=== PATIENT | male | born 1950 | race Caucasian/White ===

== ENCOUNTER 2018-08-01 19:51 | Inpatient (IN) | payer BC, OTHER ==
--- NOTE | 2018-08-01 19:54 | PDOC ---
History of Present Illness - General History Source: Patient Exam Limitations: No Limitations - History of Present Illness Initial Comments: 08/01/18 20:07 A portion of this note was documented by scribe services under my direction. I have reviewed the details of the note, within reason, and agree with the documentation with the following case summary and management plan written by me. Patient treated in the ED. Nursing notes are reviewed and incorporated into the medical decision-making. Vital signs reviewed. Assessment plan: This is a 68-year-old male sent in by his primary care doctor for admission for CHF. Patient denies history of CHF in the past. Patient was having difficulty breathing went to his PMD and was noted to be new onset of CHF so sent to the emergency department for Lasix in the ED and that admission. <Dalton Mg I - Last Filed: 08/01/18 20:07> - General History Source: Patient Exam Limitations: No Limitations - History of Present Illness Initial Comments: 08/01/18 20:05 The patient is a 68 year old male presenting with his , who presents to the ED complaining of shortness of breath onset today. He reports that he was seen by his PCP earlier today, who advised him to have blood tests, chest X-Ray and EKG at [facility] earlier today. The patient was started on a Z-pack and sent home. After the patient went home, the PCP called him and advised him to come back to [facility] ED to get Lasix for his CHF with possible admission. The patient denies chest pain, headache and dizziness. Denies fever, chills, nausea, vomiting, diarrhea or constipation. PAST MEDICAL HISTORY: CHF PAST SURGICAL HISTORY: no significant history FAMILY HISTORY: no pertinent history SOCIAL HISTORY: Pt lives with family and is employed. MEDICATIONS: reviewed ALLERGIES: As per nursing notes GENERAL: The patient is awake, alert, and fully oriented, in no acute distress. HEAD: Normal with no signs of trauma. EYES: Pupils equal, round and reactive to light, extraocular movements intact, sclera anicteric, conjunctiva clear. LUNGS: (+) Mild tachypnia, bilateral rales half way up the lungs. CARDIAC: S1-S2 normal, regular rate and rhythm, no murmurs rubs or gallops EXTREMITIES: (+) Bilateral pedal edema 1-2+. Normal range of motion. NEUROLOGICAL: Normal speech, normal gait. PSYCH: Normal mood, normal affect. SKIN: Warm, Dry, normal turgor, no rashes or lesions noted. <Dwain Medina - Last Filed: 08/01/18 20:12> - General Chief Complaint: Congestive Heart Failure Stated Complaint: CHF Time Seen by Provider: 08/01/18 19:53 Past History <Dalton Mg I - Last Filed: 08/01/18 20:07> <Dwain Medina - Last Filed: 08/01/18 20:12> - Past Medical History Allergies/Adverse Reactions: Allergies Allergy/AdvReac Type Severity Reaction Status Date / Time dimenhydrinate Allergy Unverified 10/15/12 09:38 [From Dramamine] metformin Allergy Unverified 10/15/12 09:38 methocarbamol [From Robaxin] Allergy Unverified 10/15/12 09:38 pioglitazone HCl [From Actos] Allergy Unverified 10/15/12 09:38 *DC/Admit/Observation/Transfer - Discharge Dispostion Decision to Admit order: Yes <Dalton Mg I - Last Filed: 08/01/18 20:07> - Attestations Scribe Attestion: 08/01/18 20:05 Documentation prepared by Dwain Medina, acting as medical payment poster for Dalton Mg MD <Dwain Medina - Last Filed: 08/01/18 20:12> Diagnosis at time of Disposition: CHF (congestive heart failure)
[2018-08-01] MEDS ORDERED: FUROSEMIDE 40 MG/4 ML INJECTABLE VIAL IVPUSH ONE (20:35)
[2018-08-01] MEDS ORDERED: MIRTAZAPINE 30 MG TABLET (FP) PO SCH (21:00)
[2018-08-01] MEDS ORDERED: FUROSEMIDE 40 MG/4 ML INJECTABLE VIAL ONE (21:01)
[2018-08-01] MEDS ORDERED: PATIENT'S OWN MEDICATION (NON-FORMULARY) (Lisinopril/Hydrochlorothiazide [Lisinopril-Hctz PO SCH (22:00)
[2018-08-01] MEDS ORDERED: MIRTAZAPINE 15 MG TABLET (FP) PO SCH (22:00)
[2018-08-01] MEDS ORDERED: ATORVASTATIN CA 10 MG TABLET (FP) PO SCH (22:00)
[2018-08-01 22:26] VITALS: BMI 30.2
--- NOTE | 2018-08-01 23:32 | HP ---
CHIEF COMPLAINT:shortness of breath for two weeks, was treated for a cold and was taking Z pack PCP:Dr. Juarez HISTORY OF PRESENT ILLNESS: 68 year old male with history of hyperlipdemia, hypertension, diabetes mellitus , disectomy to c4,c5 and c6, left hip replacement in 2005 and full set of teeth extractions who presents with shortness of breath he has been experiencing for the past 2 1/2 weeks. He was treated with one day of Zpack however his symptoms continued. He reports being started on mobic recently for leg pain.He reports a 10 pound weight gain in 2 weeks. He denied eating foods high in sodium. He denied chest pain, orthopnea, paraoxysmal nocturnal dyspnea. Upon evaluation hin the ER he was found to have new onset acute congestive heart failure. Labs notable for BNP of 1680 and troponin of 0.60. In the ER he received one dosage of IV lasix 40 mg . He is being admitted to telemetry for IV diuresis and further cardiac management. PAST MEDICAL HISTORY:as above PAST SURGICAL HISTORY:as above Social History: Smoking:reports quit 4 weeks ago, smoked for 50 years Alcohol:Denies Drugs: Denies Family History:Father- CAD with stent Allergies dimenhydrinate [From Dramamine] Allergy (Verified 08/01/18 21:00) metformin Allergy (Verified 08/01/18 21:00) methocarbamol [From Robaxin] Allergy (Verified 08/01/18 21:00) pioglitazone HCl [From Actos] Allergy (Verified 08/01/18 21:00) HOME MEDICATIONS: REVIEW OF SYSTEMS CONSTITUTIONAL: Absent: fever, chills, diaphoresis, generalized weakness, malaise, loss of appetite, weight change HEENT: Absent: rhinorrhea, nasal congestion, throat pain, throat swelling, difficulty swallowing, mouth swelling, ear pain, eye pain, visual changes CARDIOVASCULAR: Absent: chest pain, syncope, palpitations, irregular heart rate, lightheadedness , peripheral edema RESPIRATORY: Absent: cough, shortness of breath, dyspnea with exertion, orthopnea, wheezing, stridor, hemoptysis GASTROINTESTINAL: Absent: abdominal pain/distension, nausea, vomiting, diarrhea, constipation, melena, hematochezia GENITOURINARY: Absent: dysuria, frequency, urgency, hesitancy, hematuria, flank pain, genital pain MUSCULOSKELETAL: Absent: myalgia, arthralgia, joint swelling, back pain, neck pain SKIN: Absent: rash, itching, pallor HEMATOLOGIC/IMMUNOLOGIC: Absent: easy bleeding, easy bruising, lymphadenopathy, frequent infections ENDOCRINE: Absent: unexplained weight gain, unexplained weight loss, heat intolerance, cold intolerance NEUROLOGIC: Absent: headache, focal weakness or paresthesias, dizziness, unsteady gait, seizure, mental status changes, bladder or bowel incontinence PSYCHIATRIC: Absent: anxiety, depression, suicidal or homicidal ideation, hallucinations. PHYSICAL EXAMINATION Vital Signs - 24 hr 08/01/18 08/01/18 19:52 22:47 Temperature 98.1 F 98.4 F Pulse Rate 104 H 54 L Respiratory 22 H 18 Rate Blood Pressure 151/97 128/63 O2 Sat by Pulse 92 L 93 L Oximetry (%) GENERAL: awake, alert, and fully oriented, in no acute distress HEAD: normal with no signs of trauma EYES: Pupils equal, round and reactive to light EARS, NOSE, THROAT: Ears normal, nares patent, oropharynx clear without exudates. Moist mucous membranes. NECK: Normal range of motion, supple no JVD LUNGS: +rales No accessory muscle use. HEART: Regular rate and rhythm, normal S1 and S2 no murmur ABDOMEN: Soft, nontender, not distended, normoactive bowel sounds MUSCULOSKELETAL: Normal range of motion at all joints. No bony deformities or tenderness UPPER EXTREMITIES: 2+ pulses, warm, well-perfused. No cyanosis. No clubbing. No peripheral edema. LOWER EXTREMITIES: 2+ pulses, warm, well-perfused. No calf tenderness. 1+ edema present bilaterally NEUROLOGICAL: Normal speech. Normal gait. PSYCHIATRIC: Cooperative. Good eye contact. Appropriate mood and affect. SKIN: Warm, dry, normal turgor, no rashes or lesions noted, normal capillary refill. Laboratory Results - last 24 hr 08/01/18 08/01/18 21:00 21:00 Creatine Kinase 114 Troponin I 0.60 H ASSESSMENT/PLAN: 68 year old male with history of hyperlipdemia, hypertension, diabetes mellitus , disectomy to c4,c5 and c6, left hip replacement in 2005 and full set of teeth extractions who presented with shortness of breath for the past 2 1/2 weeks and a 10 pound weight gain in 2 weeks. New onset acute congestive heart failure BNP 1680 and troponin of 0.60 .Patient has signs of fluid overload on exam. He received one dosage of IV lasix 40 mg . Continue with IV lasix 40 mg twice daily . Monitor strict I&O's,enal studies and electrolytes closely. Low sodium diet.Echocardiogram ordered to evaluate LV function and exclude wall motion and valvular abnormalities. Cardiology- Dr. Berry as per patient request consulted. Elevated Troponin Patient denies active anginal symptoms. Continue to trend troponin overnight. ?demand mediated ischemia but ACS cannot be fully excluded due to patient risk factors. Added baby aspirin, continue yun, statin therapy. Would consider adding beta tere, will defer management to Cardiology. EKG with no acute ischemia. Repeat EKG in am. Pending Cardiology evaluation. Will hold metformin if will need further cardiac invasive intervention. Hypertension Controlled . Continue with HCTZ, clonidine and lisinopril. Diabetes Mellitus Accucheks before meals. Will hold metformin as above. Check hemoglobin a1c. Insulin as per sliding scale. Hyperlipidemia Continue statin therapy. FEN Monitor electrolytes closely as patient being diuresed. DVT Lovenox 40 mg daily. Visit type - Emergency Visit Emergency Visit: Yes ED Registration Date: 08/01/18 Care time: The patient presented to the Emergency Department on the above date and was hospitalized for further evaluation of their emergent condition. - New Patient This patient is new to me today: Yes Date on this admission: 08/02/18 - Critical Care Critical Care patient: No
[2018-08-02] MEDS: cloNIDine HCL 0.1 MG TABLET PO SCH ×3 (00:09→22:17)
[2018-08-02] MEDS: HYDROCHLOROTHIAZIDE 25 MG TABLET (FP) PO SCH ×2 (00:10→09:21)
[2018-08-02] MEDS: LISINOPRIL 20 MG TABLET (FP) PO SCH ×3 (00:10→22:19)
[2018-08-02] MEDS ORDERED: ENOXAPARIN NA (PORCINE) 100 MG/1 ML DISP.SYRIN SQ SCH (06:15)
[2018-08-02] MEDS: FUROSEMIDE 40 MG/4 ML INJECTABLE VIAL IVPUSH SCH ×2 (06:19→13:07)
[2018-08-02] MEDS ORDERED: INSULIN SLIDING SCALE (NOVOLOG) 1 VIAL SQ SCH ×2 (07:00)
[2018-08-02] MEDS ORDERED: sitaGLIPtin PHOSPHATE 100 MG TABLET (FP) PO SCH (07:00)
[2018-08-02] MEDS ORDERED: metFORMIN HCL 500 MG TABLET (FP) PO SCH (07:00)
[2018-08-02 07:33] LABS: BASO % 0.7 % (0-2.0); EOS % 1.7 % (0-4.5); HEMATOCRIT 44.5 % (35.4-49); HEMOGLOBIN 14.7 GM/dl (11.7-16.9); LYMPH % 18.1 % (8-40); MCH 30.9 pg (25.7-33.7); MEAN CELL VOLUME 93.7 fl (80-96); MEAN PLT VOLUME 10.1 fl (7.5-11.1); MONO % 5.2 % (3.8-10.2); NEUT % 74.3 % (42.8-82.8); PLATELET COUNT 216 K/MM3 (134-434); RBC 4.75 M/mm3 (4.00-5.60); RDW 12.9 % (11.9-15.9); WHITE BLOOD COUNT 9.5 K/mm3 (4.0-10.8)
[2018-08-02 08:03] LABS: ANION GAP 10 MMOL/L (8-16); BLOOD UREA NITROGEN 21 mg/dl (7-18); CALCIUM 9.2 mg/dl (8.5-10); CHLORIDE 99 mmol/L (98-107); CO2 29 mmol/L (21-32); CREATININE 0.7 mg/dl (0.55-1.3); GLUCOSE,RANDOM 199 mg/dl (74-106); POTASSIUM 3.9 mmol/L (3.5-5.1); SODIUM 138 mmol/L (136-145)
[2018-08-02] MEDS ORDERED: ASPIRIN COATED 81 MG TABLET.EC PO STA (08:23)
[2018-08-02] MEDS ORDERED: ENOXAPARIN NA (PORCINE) 30 MG/0.3 ML DISP.SYRIN SQ SCH ×2 (10:00)
[2018-08-02] MEDS ORDERED: ASPIRIN 81 MG CHEWABLE TABLETS PO SCH (10:00)
--- NOTE | 2018-08-02 10:46 | PN ---
Physical Exam: SUBJECTIVE: Patient seen and examined at bedside. No chest pain overnight or at present. No palpitations, dizziness, diaphoresis. Had lower extremity swelling over past two days which is improved. Breathing is improved. Urinating frequently after lasix. OBJECTIVE: Vital Signs Period Temp Pulse Resp BP Sys/Richard Pulse Ox Last 24 Hr 97.5 F-98.5 F 54-104 18-22 119-151/61-97 87-97 GENERAL: The patient is awake, alert, and fully oriented, in no acute distress. LUNGS: Bibasilar crackles HEART: Regular rate and rhythm, S1, S2 ABDOMEN: Soft, nontender, nondistended EXTREMITIES: 2+ pulses, warm, well-perfused, trace bilateral lower ext edema NEUROLOGICAL: Cranial nerves II through XII grossly intact. Normal speech, steady gait observed Laboratory Results - last 24 hr 08/01/18 08/01/18 08/02/18 21:00 21:00 02:00 WBC RBC Hgb Hct MCV MCH MCHC RDW Plt Count MPV Absolute Neuts (auto) Neutrophils % Lymphocytes % Monocytes % Eosinophils % Basophils % Sodium Potassium Chloride Carbon Dioxide Anion Gap BUN Creatinine Creat Clearance w eGFR POC Glucometer Random Glucose Hemoglobin A1c % Calcium Creatine Kinase 114 Troponin I 0.60 H 1.62 H* 08/02/18 08/02/18 08/02/18 06:33 07:00 07:00 WBC 9.5 RBC 4.75 Hgb 14.7 Hct 44.5 MCV 93.7 MCH 30.9 MCHC 33.0 RDW 12.9 Plt Count 216 MPV 10.1 Absolute Neuts (auto) 7.0 Neutrophils % 74.3 Lymphocytes % 18.1 D Monocytes % 5.2 Eosinophils % 1.7 Basophils % 0.7 Sodium 138 Potassium 3.9 Chloride 99 Carbon Dioxide 29 Anion Gap 10 BUN 21 H Creatinine 0.7 Creat Clearance w eGFR > 60 POC Glucometer 188 Random Glucose 199 H Hemoglobin A1c % Calcium 9.2 Creatine Kinase Troponin I 08/02/18 08/02/18 07:00 07:00 WBC RBC Hgb Hct MCV MCH MCHC RDW Plt Count MPV Absolute Neuts (auto) Neutrophils % Lymphocytes % Monocytes % Eosinophils % Basophils % Sodium Potassium Chloride Carbon Dioxide Anion Gap BUN Creatinine Creat Clearance w eGFR POC Glucometer Random Glucose Hemoglobin A1c % 8.5 H Calcium Creatine Kinase Troponin I 0.59 H Active Medications Generic Name Dose Route Start Last Admin Trade Name Terry PRN Reason Stop Dose Admin Aspirin 81 mg 08/02/18 10:00 08/02/18 09:20 Asa - PO Not Given DAILY TOMMY Atorvastatin Calcium 10 mg 08/01/18 22:00 08/02/18 00:10 Lipitor - PO 10 mg HS TOMMY Administration Bupropion HCl 300 mg 08/02/18 10:00 08/02/18 09:21 Wellbutrin Xl - PO 300 mg DAILY TOMMY Administration Clonidine 0.3 mg 08/01/18 22:00 08/02/18 09:21 Catapres - PO 0.3 mg BID TOMMY Administration Enoxaparin Sodium 100 mg 08/02/18 06:15 08/02/18 06:16 Lovenox - SQ 100 mg BID@0600,1800 TOMMY Administration Furosemide 40 mg 08/02/18 06:00 08/02/18 06:19 Lasix Injection - IVPUSH 40 mg BID@0600,1400 TOMMY Administration Hydrochlorothiazide 25 mg 08/01/18 22:15 08/02/18 09:21 Hctz - PO 25 mg BID TOMMY Administration Insulin Aspart 1 vial 08/02/18 07:00 08/02/18 06:36 Novolog Vial Sliding Scale - SQ Not Given BIDAC [facility] Protocol Lisinopril 20 mg 08/01/18 22:15 08/02/18 09:21 Prinivil PO 20 mg BID TOMMY Administration Mirtazapine 45 mg 08/01/18 22:00 08/02/18 00:10 Remeron - PO Not Given HS [facility] PCP: Dr. Pelaez ASSESSMENT/PLAN 68 year-old male with a PMH significant for HTN, HLD, Type II NIDDM, and chronic pain s/p cervical spine discectomies and left hip replacement. Placed on observation for suspected heart failure. Newly diagnosed heart failure, NOS --in setting of viral upper respiratory symptoms since May --08/01 CXR: cardiomegaly, moderate congestive heart failure, possible small effusions, fluid in the fissures --continue IV Lasix BID --cardiology following Elevated troponins --0.6-->1.62-->0.59 --ECG: not suggestive of acute ischemic event --takes daily ASA, will continue --was started on full dose lovenox last night after second troponin came back elevated; will defer to cardiology whether to continue --Echo done pending dictation Possible pneumonia --possible infiltrates on CXR --labs drawn in PCP's office on 08/01: WBC 13.7k --was started on azithromycin by Dr. Pelaez, will continue (today day #2 - has own supply); start ceftriaxone (day #1) Chronic pain --s/p multiple orthopedic surgeries --in past was on very high doses of oxycontin, weaned off over 2 years; takes multiple NSAIDS; started CBD several weeks ago Hypertension --BP stable --continue lisinopril Hyperlipidemia --continue Lipitor Type II NIDDM --Novolog sliding scale coverage FEN Fluids: PO intake adequate Electrolytes: replete as indicated Nutrition: diabetic/low sodium DVT prophylaxis: on full dose lovenox Dispo: continues to require inpatient care. Full code. Visit type - Emergency Visit Emergency Visit: Yes ED Registration Date: 08/01/18 Care time: The patient presented to the Emergency Department on the above date and was hospitalized for further evaluation of their emergent condition. - New Patient This patient is new to me today: Yes Date on this admission: 08/02/18 - Critical Care Critical Care patient: No
[2018-08-02] MEDS ORDERED: CEFTRIAXONE 2 GM-D5W BAG 2 GM/50 ML BAG IVPB SCH (11:00)
[2018-08-02] MEDS ORDERED: CEFTRIAXONE 2 GM in DEXTROSE 5%-WATER 100 ML IVPB SCH (11:15)
[2018-08-02] MEDS ORDERED: CEFTRIAXONE 2 GM in SODIUM CHLORIDE 100 ML IVPB SCH (11:15)
[2018-08-02] MEDS ORDERED: SODIUM CHLORIDE 100 ML IVPB ONE (11:40)
[2018-08-02] MEDS: CEFTRIAXONE 2 GM in SODIUM CHLORIDE 100 ML IVPB SCH (11:43)
--- NOTE | 2018-08-02 13:25 | ECHO ---
Name: NADER SCANLON Exam:Adult Echocardiogram Study Date: 08/02/2018 08:22 AM Age: 68 yrs Reason For Study: CHF NEW ONSET Height: 72 in Weight: 218 lb BSA: 2.2 m2 MMode/2D Measurements & Calculations IVSd: 1.00 cm Ao root diam: 2.7 cm LVIDd: 5.7 cm LA dimension: 4.0 cm LVIDs: 4.4 cm LVPWd: 0.97 cm EDV(Teich): 161.1 ml ESV(Teich): 87.0 ml Doppler Measurements & Calculations MV E max kasandra: 89.4 cm/sec MV A max kasandra: 60.0 cm/sec MV dec slope: 753.8 cm/sec2 MV E/A: 1.5 Ao V2 max: 156.0 cm/sec LV V1 max P.7 mmHg Ao max P.7 mmHg LV V1 max: 96.6 cm/sec MR max kasandra: 294.4 cm/sec MR max P.7 mmHg Procedure A complete two-dimensional transthoracic echocardiogram was performed (2D, M-mode, Doppler and color flow Doppler). Left Ventricle The left ventricle is normal in size. Left ventricular systolic function is moderately reduced. Eject ion Fraction = 40-45%. There is moderate global hypokinesis of the left ventricle. Right Ventricle The right ventricle is normal in size and function. Atria Normal left and right atrial size and function. Mitral Valve There is mild to moderate mitral regurgitation. Tricuspid Valve No tricuspid regurgitation. There was insufficient TR detected to calculate RV systolic pressure. Aortic Valve No hemodynamically significant valvular aortic stenosis. No aortic regurgitation is present. Pulmonic Valve There is no pulmonic valvular regurgitation. Great Vessels The aortic root is normal size. Pericardium/Pleura Small pericardial effusion (<1cm). There are no echocardiographic indications of cardiac tamponade. Interpretation Summary The left ventricle is normal in size. Left ventricular systolic function is moderately reduced. There is moderate global hypokinesis of the left ventricle. The right ventricle is normal in size and function. There is mild to moderate mitral regurgitation. Small pericardial effusion (<1cm) MD Gm Moore 08/02/2018 01:25 PM
--- NOTE | 2018-08-02 14:09 | CON.CARD ---
Consult Consult Specialty:: Cardiology Referred by:: Medicine Reason for Consultation:: CHF - History of Present Illness Chief Complaint: shortness of breath History of Present Illness: 68M h/o HLD, HTN, DM p/w dyspnea for 2-3 weeks. Treated with zpack as outpatient did not improve. No chest pain, palps, dizziness. Had 10 lb weight gain in 2 weeks. BNP 1680, trop 0.6, received lasix 40 mg IV x 1. Overnight trop increased to 1.6, given full dose lovenox x 1, trop this AM 0.6. Feels short of breath but improved. edema over the last few weeks, improved. - History Source Limitations to Obtaining History: No Limitations - Alcohol/Substance Use Hx Alcohol Use: No - Smoking History Smoking history: Former smoker Have you smoked in the past 12 months: Yes Home Medications - Allergies Allergies/Adverse Reactions: Allergies Allergy/AdvReac Type Severity Reaction Status Date / Time dimenhydrinate Allergy Verified 08/01/18 21:00 [From Dramamine] metformin Allergy Verified 08/01/18 21:00 methocarbamol [From Robaxin] Allergy Verified 08/01/18 21:00 pioglitazone HCl [From Actos] Allergy Verified 08/01/18 21:00 Family Disease History - Family Disease History Family History: Unremarkable Review of Systems - Review of Systems Constitutional: reports: No Symptoms Eyes: reports: No Symptoms HENT: reports: No Symptoms Neck: reports: No Symptoms Cardiovascular: reports: No Symptoms, Chest Pain Respiratory: reports: SOB Gastrointestinal: reports: No Symptoms Genitourinary: reports: No Symptoms Musculoskeletal: reports: No Symptoms Integumentary: reports: No Symptoms Neurological: reports: No Symptoms Hematology/Lymphatic: reports: No Symptoms Psychiatric: reports: No Symptoms Vital Signs: Vital Signs Temperature 98 F 08/02/18 08:45 Pulse Rate 80 08/02/18 08:45 Respiratory Rate 18 08/02/18 08:46 Blood Pressure 125/77 08/02/18 08:45 O2 Sat by Pulse Oximetry (%) 96 08/02/18 08:46 Constitutional: Yes: Well Nourished, No Distress, Calm Eyes: Yes: Conjunctiva Clear, EOM Intact HENT: Yes: Atraumatic, Normocephalic Neck: Yes: Supple, Trachea Midline Respiratory: Yes: Regular, Rales (bases bilaterally) Gastrointestinal: Yes: Normal Bowel Sounds, Soft Cardiovascular: Yes: Regular Rate and Rhythm JVD: Yes Carotid Bruit: No PMI: Non-Displaced Heart Sounds: Yes: S1, S2 Murmur: No: Systolic Murmur Musculoskeletal: No: Joint Swelling Extremities: No: Cold Edema: Yes Edema: LLE: 1+, RLE: 1+ Peripheral Pulses WNL: Yes Peripheral Pulses: 2+ Left Doralis Pedis, 2+ Right Dorsalis Pedis Neurological: Yes: Alert, Oriented Psychiatric: Yes: Agitated - Other Data Labs, Other Data: CBC, BMP 08/02/18 07:00 08/02/18 07:00 Troponin, BNP 08/01/18 08/02/18 08/02/18 21:00 02:00 07:00 Troponin I 0.60 H 1.62 H* 0.59 H Troponin, BNP 08/01/18 08/02/18 08/02/18 21:00 02:00 07:00 Troponin I 0.60 H 1.62 H* 0.59 H Assessment/Plan echo 01/2018 nl LV/RV function, trivial pericardial effusion echo 07/2018 LV function mod reduced EF 40-45%, mod global hypok of LV, RV nl, mild to mod MR, small pericardial effusion CXR: congestive changes EKG: sinus, RBBB, PACs tele: sinus, PACs 68M h/o HLD, HTN, DM p/w dyspnea, CHF exac, NSTEMI Acute systolic CHF exac - echo shows EF 40-45% (prior nl EF in 11/2017), BNP 1680 - dyspnea, edema improving with IV lasix, continue lasix 40 mg IV BID - ischemic workup after euvolemic NSTEMI - trop 0.6->1.6->0.6, asymptomatic, no EKG change - new cardiomyopathy as above - continue lovenox, increase atorvastatin to 80 mg daily - cardiac cath when euvolemic HTN - on clonidine and lisinopril at home, has had low BPs today - start bb as BP tolerates HLD - cont statin DM - manage per primary
--- NOTE | 2018-08-02 15:44 | EKG ---
Test Reason : Blood Pressure : / mmHG Vent. Rate : 101 BPM Atrial Rate : 101 BPM P-R Int : 156 ms QRS Dur : 148 ms QT Int : 400 ms P-R-T Axes : 053 180 017 degrees QTc Int : 518 ms SINUS TACHYCARDIA WITH PREMATURE ATRIAL COMPLEXES POSSIBLE LEFT ATRIAL ENLARGEMENT RIGHT BUNDLE BRANCH BLOCK ABNORMAL ECG WHEN COMPARED WITH ECG OF 02-AUG-2018 01:59, CRITERIA FOR ANTERIOR INFARCT ARE NO LONGER PRESENT Confirmed by CASSANDRA VALADEZ, MITALI ([id number]) on 08/02/2018 3:43:32 PM Referred By: KEV REILLY Confirmed By:MITALI TRUJILLO MD
--- NOTE | 2018-08-02 15:45 | EKG ---
Test Reason : Blood Pressure : / mmHG Vent. Rate : 104 BPM Atrial Rate : 104 BPM P-R Int : 162 ms QRS Dur : 148 ms QT Int : 378 ms P-R-T Axes : 061 155 011 degrees QTc Int : 497 ms SINUS TACHYCARDIA WITH PREMATURE ATRIAL COMPLEXES RIGHT BUNDLE BRANCH BLOCK ANTERIOR INFARCT , AGE UNDETERMINED ABNORMAL ECG WHEN COMPARED WITH ECG OF 01-AUG-2018 21:47, PREMATURE VENTRICULAR COMPLEXES ARE NO LONGER PRESENT PREMATURE ATRIAL COMPLEXES ARE NOW PRESENT ANTERIOR INFARCT IS NOW PRESENT Confirmed by MITALI TRUJILLO MD ([id number]) on 08/02/2018 3:45:07 PM Referred By: Confirmed By:MITALI TRUJILLO MD
--- NOTE | 2018-08-02 15:46 | EKG ---
Test Reason : Blood Pressure : / mmHG Vent. Rate : 110 BPM Atrial Rate : 110 BPM P-R Int : 146 ms QRS Dur : 144 ms QT Int : 374 ms P-R-T Axes : 049 153 013 degrees QTc Int : 506 ms SINUS TACHYCARDIA WITH OCCASIONAL PREMATURE VENTRICULAR COMPLEXES POSSIBLE LEFT ATRIAL ENLARGEMENT RIGHT BUNDLE BRANCH BLOCK ABNORMAL ECG WHEN COMPARED WITH ECG OF 01-AUG-2018 14:38, NO SIGNIFICANT CHANGE WAS FOUND Confirmed by MITALI TRUJILLO MD ([id number]) on 08/02/2018 3:45:52 PM Referred By: MD OLEA Confirmed By:MITALI TRUJILLO MD
[2018-08-02] MEDS: INSULIN SLIDING SCALE (NOVOLOG) 1 VIAL SQ SCH (17:42)
[2018-08-02] MEDS: ENOXAPARIN NA (PORCINE) 100 MG/1 ML DISP.SYRIN SQ SCH (17:42)
[2018-08-02] MEDS ORDERED: MIRTAZAPINE 15 MG TABLET (FP) PO SCH (22:00)
[2018-08-02] MEDS: AMITRIPTYLINE HCL 10 MG TABLET (FP) PO SCH (22:18)
[2018-08-02] MEDS: ATORVASTATIN CA 80 MG TABLET (FP) PO SCH (22:19)
[2018-08-02] MEDS: POLYETHYLENE GLYCOL 3350 119 GM BTL PO SCH (22:19)
[2018-08-02] MEDS: MIRTAZAPINE 30 MG TABLET (FP) PO SCH (22:20)
[2018-08-03] MEDS: ENOXAPARIN NA (PORCINE) 100 MG/1 ML DISP.SYRIN SQ SCH ×2 (06:39→17:15)
[2018-08-03] MEDS: FUROSEMIDE 40 MG/4 ML INJECTABLE VIAL IVPUSH SCH ×2 (06:39→13:22)
[2018-08-03] MEDS: INSULIN SLIDING SCALE (NOVOLOG) 1 VIAL SQ SCH ×2 (06:39→17:16)
[2018-08-03] MEDS ORDERED: SODIUM CHLORIDE 100 ML IVPB ONE (09:07)
--- NOTE | 2018-08-03 09:43 | PN ---
Progress Note (short form) - Note Progress Note: Hospitalist to document today. Some cough but no chest pain. 1920cc urine output. Lost 5 lbs. Chest; rales at bases ; pedal edema is gone. Repeat CXR, EKG ordered. lab reordered by hospitalist. If patient will be studied at the [facility] [place] we should D/C Metformin
[2018-08-03] MEDS: CEFTRIAXONE 2 GM in SODIUM CHLORIDE 100 ML IVPB SCH (09:55)
[2018-08-03] MEDS: cloNIDine HCL 0.1 MG TABLET PO SCH ×2 (09:56→21:44)
[2018-08-03] MEDS: ASPIRIN 81 MG CHEWABLE TABLETS PO SCH (09:56)
[2018-08-03] MEDS: LISINOPRIL 20 MG TABLET (FP) PO SCH ×2 (09:56→21:44)
[2018-08-03] MEDS ORDERED: PT OWN MED DRAWER 7, Y5N ONE ×2 (09:58→21:42)
[2018-08-03] MEDS ORDERED: ASPIRIN 81 MG CHEWABLE TABLETS PO SCH (10:00)
[2018-08-03 10:34] LABS: HEMOGLOBIN 16.2 GM/dL (11.7-16.9); MCH 32.1 pg (25.7-33.7); MCHC 34.5 g/dl (32.0-35.9); MEAN CELL VOLUME 93.1 fl (80-96); PLATELET COUNT 231 K/MM3 (134-434); RBC 5.05 M/mm3 (4.00-5.60); RDW 13.5 % (11.9-15.9); WHITE BLOOD COUNT 10.4 K/mm3 (4.0-10.0)
--- NOTE | 2018-08-03 11:05 | PN ---
Progress Note (short form) - Note Progress Note: s: no cp sob palps dizzy o: Vital Signs Period Temp Pulse Resp BP Sys/Richard Pulse Ox Last 24 Hr 97.2 F-98.2 F 61-109 18-20 89-154/51-70 90-93 Constitutional: Yes: Well Nourished, No Distress, Calm Eyes: Yes: Conjunctiva Clear Respiratory: Yes: Regular, Rales (bases bilaterally) Gastrointestinal: Yes: Normal Bowel Sounds, Soft Cardiovascular: Yes: Regular Rate and Rhythm JVD: Yes Heart Sounds: Yes: S1, S2 Murmur: No: Systolic Murmur Extremities: No: Cold Edema: Yes Edema:trace bl Peripheral Pulses: 2+ Left Doralis Pedis, 2+ Right Dorsalis Pedis Neurological: Yes: Alert, Oriented Psychiatric: Yes: Agitated Current Medications Generic Name Dose Route Start Last Admin Trade Name Freq PRN Reason Stop Dose Admin Amitriptyline HCl 20 mg 08/02/18 22:00 08/02/18 22:18 Elavil - PO 20 mg HS TOMMY Administration Aspirin 81 mg 08/03/18 10:00 08/03/18 09:56 Asa - PO 81 mg DAILY TOMMY Administration Atorvastatin Calcium 80 mg 08/02/18 22:00 08/02/18 22:19 Lipitor - PO 80 mg HS TOMMY Administration Bupropion HCl 300 mg 08/03/18 10:00 08/03/18 10:01 Wellbutrin Xl - PO 300 mg DAILY TOMMY Administration Clonidine 0.2 mg 08/02/18 14:50 08/03/18 09:56 Catapres - PO 0.2 mg BID TOMMY Administration Enoxaparin Sodium 100 mg 08/02/18 18:00 08/03/18 06:39 Lovenox - SQ 100 mg BID@0600,1800 TOMMY Administration Furosemide 40 mg 08/03/18 06:00 08/03/18 06:39 Lasix Injection - IVPUSH 40 mg BID@0600,1400 TOMMY Administration Gabapentin 200 mg 08/03/18 14:00 Neurontin - PO TID TOMMY Ceftriaxone Sodium 2 gm/ 100 mls @ 200 mls/hr 08/02/18 11:45 08/03/18 09:55 Sodium Chloride IVPB 200 mls/hr DAILY TOMMY Administration Insulin Aspart 1 vial 08/02/18 16:30 08/03/18 06:39 Novolog Vial Sliding Scale - SQ 2 units BIDAC TOMMY Administration Protocol Lisinopril 20 mg 08/02/18 22:00 08/03/18 09:56 Prinivil PO 20 mg BID TOMMY Administration Mirtazapine 60 mg 08/02/18 22:00 08/02/18 22:20 Remeron - PO 60 mg HS TOMMY Administration Polyethylene Glycol 17 gm 08/02/18 22:00 08/02/18 22:19 Miralax (For Daily Use) - PO 17 gm HS TOMMY Administration CBC, BMP 08/03/18 10:00 Assessment/Plan echo 01/2018 nl LV/RV function, trivial pericardial effusion echo 07/2018 LV function mod reduced EF 40-45%, mod global hypok of LV, RV nl, mild to mod MR, small pericardial effusion CXR: congestive changes EKG: sinus, RBBB, PACs tele: sinus, PACs 68M h/o HLD, HTN, DM p/w dyspnea, CHF exac, NSTEMI Acute systolic CHF exac - echo shows EF 40-45% (prior nl EF in 11/2017), BNP 1680 - dyspnea, edema improving with IV lasix, continue lasix 40 mg IV BID. check daily chem7, wt. - ischemic workup after euvolemic NSTEMI - trop 0.6->1.6->0.6, asymptomatic, no EKG change - new cardiomyopathy as above - continue lovenox, increased atorvastatin to 80 mg daily - cardiac cath when euvolemic HTN - on clonidine and lisinopril at home, has had low BPs today - start bb as BP tolerates HLD - cont statin DM - manage per primary
[2018-08-03 11:12] LABS: ANION GAP 5 MMOL/L (8-16); BLOOD UREA NITROGEN 29 mg/dL (7-18); CALCIUM 9.4 mg/dL (8.5-10.1); CHLORIDE 100 mmol/L (98-107); CO2 34 mmol/L (21-32); GLUCOSE,RANDOM 238 mg/dL (74-106); MAGNESIUM 2.4 mg/dL (1.8-2.4); POTASSIUM 3.8 mmol/L (3.5-5.1); SODIUM 139 mmol/L (136-145)
--- NOTE | 2018-08-03 11:37 | PN ---
Progress Note (short form) - Note Progress Note: states breathing is much improved today. states leg swelling resolved. states he has been progressively worsening over several weeks after a cold. denies Cp, SOB, fever, chills, N/V/C/D, cough, Current Medications Generic Name Dose Route Start Last Admin Trade Name Freq PRN Reason Stop Dose Admin Amitriptyline HCl 20 mg 08/02/18 22:00 08/02/18 22:18 Elavil - PO 20 mg HS TOMMY Administration Aspirin 81 mg 08/03/18 10:00 08/03/18 09:56 Asa - PO 81 mg DAILY TOMMY Administration Atorvastatin Calcium 80 mg 08/02/18 22:00 08/02/18 22:19 Lipitor - PO 80 mg HS TOMMY Administration Bupropion HCl 300 mg 08/03/18 10:00 08/03/18 10:01 Wellbutrin Xl - PO 300 mg DAILY TOMMY Administration Clonidine 0.2 mg 08/02/18 14:50 08/03/18 09:56 Catapres - PO 0.2 mg BID TOMMY Administration Enoxaparin Sodium 100 mg 08/02/18 18:00 08/03/18 06:39 Lovenox - SQ 100 mg BID@0600,1800 TOMMY Administration Furosemide 40 mg 08/03/18 06:00 08/03/18 06:39 Lasix Injection - IVPUSH 40 mg BID@0600,1400 TOMMY Administration Gabapentin 200 mg 08/03/18 14:00 Neurontin - PO TID TOMMY Ceftriaxone Sodium 2 gm/ 100 mls @ 200 mls/hr 08/02/18 11:45 08/03/18 09:55 Sodium Chloride IVPB 200 mls/hr DAILY TOMMY Administration Insulin Aspart 1 vial 08/02/18 16:30 08/03/18 06:39 Novolog Vial Sliding Scale - SQ 2 units BIDAC TOMMY Administration Protocol Lisinopril 20 mg 08/02/18 22:00 08/03/18 09:56 Prinivil PO 20 mg BID TOMMY Administration Mirtazapine 60 mg 08/02/18 22:00 08/02/18 22:20 Remeron - PO 60 mg HS TOMMY Administration Polyethylene Glycol 17 gm 08/02/18 22:00 08/02/18 22:19 Miralax (For Daily Use) - PO 17 gm HS TOMMY Administration Last Vital Signs Temp Pulse Resp BP Pulse Ox 97.8 F 94 H 20 126/64 93 L 08/03/18 05:47 08/03/18 05:47 08/03/18 05:47 08/03/18 05:47 08/02/18 22:00 Intake & Output 07/31/18 08/01/18 08/02/18 08/03/18 23:59 23:59 23:59 23:59 Intake Total 120 Output Total 1000 1920 Balance -880 -1920 Weight 222 lb 12.8 oz 217 lb 0.9 oz 217 lb 3.2 oz general NAD CV S1 S2 RRR no murmur/rub/gallop + JVD Lungs crackles L base, no wheezing Abdomen soft NT?/ND obese Extremities no pedal edema CBCD WBC 10.4 K/mm3 (4.0-10.0) H 08/03/18 10:00 RBC 5.05 M/mm3 (4.00-5.60) 08/03/18 10:00 Hgb 16.2 GM/dL (11.7-16.9) 08/03/18 10:00 Hct 47.0 % (35.4-49) 08/03/18 10:00 MCV 93.1 fl (80-96) 08/03/18 10:00 MCHC 34.5 g/dl (32.0-35.9) 08/03/18 10:00 RDW 13.5 % (11.9-15.9) 08/03/18 10:00 Plt Count 231 K/MM3 (134-434) 08/03/18 10:00 MPV 10.0 fl (7.5-11.1) 08/03/18 10:00 CMP Sodium 139 mmol/L (136-145) 08/03/18 10:00 Potassium 3.8 mmol/L (3.5-5.1) 08/03/18 10:00 Chloride 100 mmol/L (98-107) 08/03/18 10:00 Carbon Dioxide 34 mmol/L (21-32) H 08/03/18 10:00 Anion Gap 5 MMOL/L (8-16) L 08/03/18 10:00 BUN 29 mg/dL (7-18) H 08/03/18 10:00 Creatinine 1.0 mg/dL (0.55-1.3) 08/03/18 10:00 Creat Clearance w eGFR > 60 (>60) 08/03/18 10:00 Calcium 9.4 mg/dL (8.5-10.1) 08/03/18 10:00 Assessment and Plan: 68 year-old male with a PMH significant for HTN, HLD, Type II NIDDM, and chronic pain s/p cervical spine discectomies and left hip replacement. presented with progressively worsening SOB and had + troponins sent here from [facility] for continuous cardiac monitoring. 1. Newly diagnosed systolic heart failure- EF 40-45%. CXR ordered this AM. weight stable. will cont lasix 40mg IV BID. monitor electrolytes. will need cardiac cath. cardiology on board. daily weights 2. NSTEMI- Trop peaked 1.62. on full dose lovenox. plan for cardiac cath when euvolemic 3. PNA- completed Zpack. on Ceftriaxone day 2. f/u CXR 4. Chronic pain- due to multiple back surgeries. currently on CBD 5. HTN- controlled. cont to monitor 6. Dyslipidemia- statin 7. DM- hold oral agents. iss and bgm 8. DVT ppx- full dose lovenox Visit type - Emergency Visit Emergency Visit: Yes ED Registration Date: 08/01/18 Care time: The patient presented to the Emergency Department on the above date and was hospitalized for further evaluation of their emergent condition. - New Patient This patient is new to me today: Yes Date on this admission: 08/03/18 - Critical Care Critical Care patient: No - Discharge Referral Referred to [facility] Med P.C.: No
--- NOTE | 2018-08-03 13:03 | EKG ---
Test Reason : Blood Pressure : / mmHG Vent. Rate : 104 BPM Atrial Rate : 104 BPM P-R Int : 160 ms QRS Dur : 148 ms QT Int : 394 ms P-R-T Axes : -25 178 021 degrees QTc Int : 518 ms SINUS TACHYCARDIA WITH OCCASIONAL PREMATURE VENTRICULAR COMPLEXES RIGHT BUNDLE BRANCH BLOCK ABNORMAL ECG WHEN COMPARED WITH ECG OF 02-AUG-2018 07:38, PREMATURE VENTRICULAR COMPLEXES ARE NOW PRESENT PREMATURE ATRIAL COMPLEXES ARE NO LONGER PRESENT Confirmed by NATHAN VALADEZ, BRENDON ([id number]) on 08/03/2018 1:02:52 PM Referred By: GALILEO CISNEROS Confirmed By:BRENDON EVANS MD
[2018-08-03] MEDS: GABAPENTIN 100 MG CAPSULE (FP) PO SCH ×2 (13:22→21:43)
[2018-08-03] MEDS ORDERED: MIRTAZAPINE 15 MG TABLET (FP) ONE (21:41)
[2018-08-03] MEDS: ATORVASTATIN CA 80 MG TABLET (FP) PO SCH (21:44)
[2018-08-03] MEDS: MIRTAZAPINE 30 MG TABLET (FP) PO SCH (21:44)
[2018-08-03] MEDS: AMITRIPTYLINE HCL 10 MG TABLET (FP) PO SCH (21:44)
[2018-08-03] MEDS: POLYETHYLENE GLYCOL 3350 119 GM BTL PO SCH (21:45)
[2018-08-04] MEDS: ENOXAPARIN NA (PORCINE) 100 MG/1 ML DISP.SYRIN SQ SCH ×2 (06:26→17:18)
[2018-08-04] MEDS: GABAPENTIN 100 MG CAPSULE (FP) PO SCH ×2 (06:26→13:15)
[2018-08-04] MEDS: FUROSEMIDE 40 MG/4 ML INJECTABLE VIAL IVPUSH SCH (06:26)
[2018-08-04] MEDS: INSULIN SLIDING SCALE (NOVOLOG) 1 VIAL SQ SCH ×2 (06:31→17:19)
[2018-08-04 07:21] LABS: BASO % 0.8 % (0-2.0); EOS % 2.9 % (0-4.5); HEMATOCRIT 44.4 % (35.4-49); HEMOGLOBIN 15.3 GM/dL (11.7-16.9); LYMPH % 28.2 % (8-40); MCH 32.1 pg (25.7-33.7); MCHC 34.5 g/dl (32.0-35.9); MEAN PLT VOLUME 9.9 fl (7.5-11.1); MONO % 8.4 % (3.8-10.2); NEUT % 59.7 % (42.8-82.8); PLATELET COUNT 215 K/MM3 (134-434); RBC 4.77 M/mm3 (4.00-5.60); RDW 13.8 % (11.9-15.9); WHITE BLOOD COUNT 7.7 K/mm3 (4.0-10.0)
[2018-08-04 07:58] LABS: ANION GAP 7 MMOL/L (8-16); BLOOD UREA NITROGEN 28 mg/dL (7-18); CALCIUM 8.9 mg/dL (8.5-10.1); CHLORIDE 100 mmol/L (98-107); CO2 33 mmol/L (21-32); CREATININE 0.8 mg/dL (0.55-1.3); GLUCOSE,RANDOM 180 mg/dL (74-106); POTASSIUM 3.6 mmol/L (3.5-5.1); SODIUM 140 mmol/L (136-145)
[2018-08-04] MEDS ORDERED: SODIUM CHLORIDE 100 ML IVPB ONE (09:02)
--- NOTE | 2018-08-04 09:22 | PN ---
Progress Note, Physician Chief Complaint: sob History of Present Illness: intense orthopnea the night [employer]. began about 3d after resolution of couple weeks' worth of URI sx's including phlegmy cough. never had CP then or since. no more sob or orthopnea at all. no palpit, syncope no h/o etoh abuse. no IVDU or cocaine. BP chronically well controlled A1c mostly 6s-7s over the years, occasionally 8s, once 10. + sleep apnea per (RN)--never tested or treated. no FH of CMP/CHF - Current Medication List Current Medications: Active Medications Amitriptyline HCl (Elavil -) 20 mg PO HS [facility] Last Admin: 08/03/18 21:44 Dose: 20 mg Aspirin (Asa -) 81 mg PO DAILY [facility] Last Admin: 08/03/18 09:56 Dose: 81 mg Atorvastatin Calcium (Lipitor -) 80 mg PO HS [facility] Last Admin: 08/03/18 21:44 Dose: 80 mg Bupropion HCl (Wellbutrin Xl -) 300 mg PO DAILY [facility] Last Admin: 08/03/18 10:01 Dose: 300 mg Clonidine (Catapres -) 0.2 mg PO BID [facility] Last Admin: 08/03/18 21:44 Dose: 0.2 mg Enoxaparin Sodium (Lovenox -) 100 mg SQ BID@0600,1800 [facility] Last Admin: 08/04/18 06:26 Dose: 100 mg Furosemide (Lasix Injection -) 40 mg IVPUSH BID@0600,1400 [facility] Last Admin: 08/04/18 06:26 Dose: 40 mg Gabapentin (Neurontin -) 200 mg PO TID [facility] Last Admin: 08/04/18 06:26 Dose: 200 mg Ceftriaxone Sodium 2 gm/ (Sodium Chloride) 100 mls @ 200 mls/hr IVPB DAILY [facility] Last Admin: 08/03/18 09:55 Dose: 200 mls/hr Insulin Aspart ([facility] Vial Sliding Scale -) [facility] Last Admin: 08/04/18 06:31 Dose: Not Given Lisinopril (Prinivil) 20 mg PO BID [facility] Last Admin: 08/03/18 21:44 Dose: 20 mg Mirtazapine (Remeron -) 60 mg PO [facility] Last Admin: 08/03/18 21:44 Dose: 60 mg Polyethylene Glycol (Miralax (For Daily Use) -) 17 gm PO HS [facility] Last Admin: 08/03/18 21:45 Dose: 17 gm - Objective Vital Signs: Vital Signs Temperature 97.5 F L 08/04/18 01:53 Pulse Rate 75 08/04/18 06:00 Respiratory Rate 18 08/04/18 06:00 Blood Pressure 128/63 08/04/18 06:00 O2 Sat by Pulse Oximetry (%) 95 08/03/18 20:58 Constitutional: Yes: No Distress, Calm Eyes: No: Sclera Icterus HENT: No: Nasal Congestion Cardiovascular: Yes: Regular Rate and Rhythm, S1, S2, Other (PMI non diplaced). No: JVD, Gallop, Murmur, Rub Respiratory: Yes: CTA Bilaterally. No: Accessory Muscle Use, Rales, Wheezes Gastrointestinal: Yes: Normal Bowel Sounds, Soft. No: Tenderness Musculoskeletal: Yes: Other (No kyphosis) Extremities: No: Cold, Cyanosis Edema: No Integumentary: No: Jaundice Neurological: Yes: Alert, Oriented (x3) Psychiatric: No: Agitated Labs: CBC, BMP 08/04/18 07:00 08/04/18 07:00 Assessment/Plan echo 01/2018 nl LV/RV function, trivial pericardial effusion echo 07/2018 LV function mod reduced EF 40-45%, mod global hypok of LV, RV nl, mild to mod MR, small pericardial effusion CXR: congestive changes EKG: sinus, RBBB, PACs tele: sinus, PACs 68M h/o HLD, HTN, DM p/w dyspnea, CHF exac, NSTEMI acute systolic CHF exac - echo shows EF 40-45% (prior nl EF in 11/2017), BNP 1680 - ? pre-existing LV dysfunction asymptomatic (PATRICIA? DM?), with chf triggered by inflammatory process of prolonged URI. vs LV dysfunction due to ACS. - clinical picture not suspicious for myocarditis--no ventricular arrhythmias, no CP, no findings of pericarditis, never clinically toxic or hemodynamically unstable. (can consider outpt MRI if etiology uncertain and EF doesn't recover) - never had CP. dyspnea, orthopnea, edema resolved with IV lasix 40 BID. - 08/04: wt down 222 to 217 initially but has not budged for past 3d. CXR 08/03 reviewed: no effusions or cephalization. lower > upper lobe interstitial pattern unchanged vs prior. stop lasix--observe sx's - ischemic workup as below - outpatient PATRICIA (pt agrees) - cont JOSEPH-I as doing - start low dose BB as below NSTEMI - trop 0.6->1.6->0.6. no angina, no EKG change - ? Type I IA, triggered by PNA/bronchitis vs Type II IA sec to CHF. remains without angina. doubt viral myocarditis as above. - global LV systolic dysfunction--plan cath for definitive assesment of MVDz once pt is well-diuresed - continue aspirin, lovenox, hi intensity atorvastatin 80 mg daily. add plavix. - add low dose BB (metopr 25 qd) for anti-IA and syst CHF benefits--watch for low BP - cardiac cath tomorrow or monday HTN - on lisinopril at home. 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
[2018-08-04] MEDS ORDERED: cloNIDine HCL 0.1 MG TABLET PO SCH (09:26)
[2018-08-04] MEDS: ASPIRIN 81 MG CHEWABLE TABLETS PO SCH (09:38)
[2018-08-04] MEDS: CEFTRIAXONE 2 GM in SODIUM CHLORIDE 100 ML IVPB SCH (09:39)
[2018-08-04] MEDS: LISINOPRIL 20 MG TABLET (FP) PO SCH (09:39)
[2018-08-04] MEDS ORDERED: CLOPIDOGREL BISULFATE 75 MG TABLET (FP) PO SCH (10:00)
[2018-08-04] MEDS ORDERED: CARVEDILOL 6.25 MG TABLET (FP) PO SCH (10:00)
--- NOTE | 2018-08-04 12:03 | PN ---
Physical Exam: SUBJECTIVE: Patient seen and examined, breathing improved, urinating well, never had any chest pain. Feels better. OBJECTIVE: Vital Signs Period Temp Pulse Resp BP Sys/Richard Pulse Ox Last 24 Hr 97.5 F-98.1 F 75-105 17-20 117-152/51-79 94-95 GENERAL: The patient is awake, alert, and fully oriented, in no acute distress, sitting in chair. HEAD: Normal with no signs of trauma. EYES: PERRL, extraocular movements intact, sclera anicteric, conjunctiva clear. No ptosis. ENT: Ears normal, nares patent, oropharynx clear without exudates, moist mucous membranes. NECK: soft, supple, no JVD visualized LUNGS: Breath sounds equal, clear to auscultation bilaterally, no wheezes, no crackles, no accessory muscle use. HEART: S1S2 regular ABDOMEN: Soft, nontender, nondistended, normoactive bowel sounds, no guarding, no rebound EXTREMITIES: trace pedal edema PSYCH: Normal mood, normal affect. SKIN: Warm, dry, normal turgor, no rashes or lesions noted Laboratory Results - last 24 hr 08/03/18 08/04/18 08/04/18 17:15 06:29 07:00 WBC 7.7 RBC 4.77 Hgb 15.3 Hct 44.4 MCV 93.0 MCH 32.1 MCHC 34.5 RDW 13.8 Plt Count 215 MPV 9.9 Absolute Neuts (auto) 4.6 Neutrophils % 59.7 Lymphocytes % 28.2 Monocytes % 8.4 Eosinophils % 2.9 Basophils % 0.8 Nucleated RBC % 0 Sodium Potassium Chloride Carbon Dioxide Anion Gap BUN Creatinine Creat Clearance w eGFR POC Glucometer 178 187 Random Glucose Calcium 08/04/18 07:00 WBC RBC Hgb Hct MCV MCH MCHC RDW Plt Count MPV Absolute Neuts (auto) Neutrophils % Lymphocytes % Monocytes % Eosinophils % Basophils % Nucleated RBC % Sodium 140 Potassium 3.6 Chloride 100 Carbon Dioxide 33 H Anion Gap 7 L BUN 28 H Creatinine 0.8 Creat Clearance w eGFR > 60 POC Glucometer Random Glucose 180 H Calcium 8.9 Home Medications Medication Instructions Recorded Amitriptyline HCl [Elavil -] 20 mg PO HS 08/02/18 Aspirin 81 mg PO DAILY 08/02/18 Clonidine HCl 0.3 mg PO DAILY 08/02/18 Metformin HCl 1,000 mg PO BID 08/02/18 Polyethylene Glycol 3350 [Miralax 17 gm PO DAILY 08/02/18 119 gm Btl -] Gabapentin [Neurontin -] 200 mg PO Q8H 08/03/18 Active Medications Generic Name Dose Route Start Last Admin Trade Name Freq PRN Reason Stop Dose Admin Amitriptyline HCl 20 mg 08/02/18 22:00 08/03/18 21:44 Elavil - PO 20 mg HS TOMMY Administration Aspirin 81 mg 08/03/18 10:00 08/04/18 09:38 Asa - PO 81 mg DAILY TOMMY Administration Atorvastatin Calcium 80 mg 08/02/18 22:00 08/03/18 21:44 Lipitor - PO 80 mg HS TOMMY Administration Bupropion HCl 300 mg 08/03/18 10:00 08/04/18 09:39 Wellbutrin Xl - PO 300 mg DAILY TOMMY Administration Clonidine 0.1 mg 08/04/18 09:26 08/04/18 09:39 Catapres - PO 0.1 mg BID TOMMY Administration Clopidogrel Bisulfate 75 mg 08/04/18 10:00 08/04/18 09:39 Plavix - PO 75 mg DAILY TOMMY Administration Enoxaparin Sodium 100 mg 08/02/18 18:00 08/04/18 06:26 Lovenox - SQ 100 mg BID@0600,1800 TOMMY Administration Gabapentin 200 mg 08/03/18 14:00 08/04/18 06:26 Neurontin - PO 200 mg TID TOMMY Administration Ceftriaxone Sodium 2 gm/ 100 mls @ 200 mls/hr 08/02/18 11:45 08/04/18 09:39 Sodium Chloride IVPB 200 mls/hr DAILY TOMMY Administration Insulin Aspart 1 vial 08/02/18 16:30 08/04/18 06:31 Novolog Vial Sliding Scale - SQ Not Given BIDAC TOMMY Protocol Lisinopril 20 mg 08/02/18 22:00 08/04/18 09:39 Prinivil PO 20 mg BID TOMMY Administration Metoprolol Succinate 25 mg 08/05/18 10:00 Toprol Xl - PO DAILY TOMMY Mirtazapine 60 mg 08/02/18 22:00 08/03/18 21:44 Remeron - PO 60 mg HS TOMMY Administration Polyethylene Glycol 17 gm 08/02/18 22:00 08/03/18 21:45 Miralax (For Daily Use) - PO 17 gm HS TOMMY Administration CXR images reviewed, congestion improved EKG NSR, RBBB ASSESSMENT/PLAN: 68 yom with PMHx of HTN, HLD,h/o opiate dependence on clonidine, with recent URI admitted with dyspnea, found with CHF and elevated troponin. -Acute systolic heart failure exacerbation -NSTEMI, ?Type I vs Type II from CHF -New LV dysfunction, ?from CAD vs recent URI, low suspicion for myocarditis -Recent URI -HTN -HLD -h/o opiate dependence on Clonidine Plan: Diuresing well, cardiology input noted, plan to hold lasix today. Strict I/Os and daily weights. ASA/statin/full dose lovenox. Plavix/metoprolol added. Plan for transfer for cardiac cath. Taper clonidine Continue lisinopril. D.c ceftriaxone, monitor off antibiotics. Continue wellbutrin. DVTPPX as above Dispo plan for cardiac cath in 24 hours per cardiology. Discussed with RN, all questions answered. Visit type - Emergency Visit Emergency Visit: Yes ED Registration Date: 08/01/18 Care time: The patient presented to the Emergency Department on the above date and was hospitalized for further evaluation of their emergent condition. - New Patient This patient is new to me today: Yes Date on this admission: 08/04/18 - Critical Care Critical Care patient: No - Discharge Referral Referred to [facility] Med P.C.: No
[2018-08-04 15:31] VITALS: BP 119/84; PULSE 78; TEMP 98.2
[2018-08-05] MEDS ORDERED: metoPROLOL SUCCINATE 25 MG TAB.SR.24H (FP) PO SCH (10:00)
--- NOTE | 2018-08-05 12:58 | EKG ---
Test Reason : Blood Pressure : / mmHG Vent. Rate : 098 BPM Atrial Rate : 098 BPM P-R Int : 162 ms QRS Dur : 152 ms QT Int : 422 ms P-R-T Axes : 000 199 013 degrees QTc Int : 538 ms POOR DATA QUALITY, INTERPRETATION MAY BE ADVERSELY AFFECTED SINUS RHYTHM PREMATURE ATRIAL COMPLEXES RIGHT BUNDLE BRANCH BLOCK ABNORMAL ECG WHEN COMPARED WITH ECG OF 03-AUG-2018 10:16, PREMATURE ATRIAL COMPLEXES ARE NOW PRESENT Confirmed by MURRAY BELTRAN MD ([id number]) on 08/05/2018 12:57:42 PM Referred By: Confirmed By:MURRAY BELTRAN MD
--- NOTE | 2018-08-05 13:08 | DS ---
Physical Exam: SUBJECTIVE: Patient seen and examined on 08/04, breathing improved, no chest pain , leg swelling markedly improved no new complaints. OBJECTIVE: Vital Signs Period Temp Pulse Resp BP Sys/Richard Pulse Ox Last 24 Hr 98.2 F 78 18 119/84 PHYSICAL EXAM on 162/109 GENERAL: The patient is awake, alert, and fully oriented, in no acute distress. HEAD: Normal with no signs of trauma. EYES: PERRL, extraocular movements intact, sclera anicteric, conjunctiva clear. ENT: Ears normal, nares patent, oropharynx clear without exudates, moist mucous membranes. NECK: Trachea midline, full range of motion, supple. LUNGS: few basilar rales, improved exam HEART: Regular rate and rhythm, S1, S2 ABDOMEN: Soft, nontender, nondistended, normoactive bowel sounds, no guarding, no rebound EXTREMITIES: 2+ pulses, warm, well-perfused, no edema. NEUROLOGICAL: Cranial nerves II through XII grossly intact. Normal speech, gait not observed. PSYCH: Normal mood, normal affect. SKIN: Warm, dry, normal turgor, no rashes or lesions noted. LABS Laboratory Results - last 24 hr 08/04/18 16:41 POC Glucometer 206 HOSPITAL COURSE: Date of Admission:08/01/18 Date of Discharge: 08/05/18 Minutes to complete discharge: 40 Discharge Summary Reason For Visit: CONGESTIVE HEART FAILURE Hospital Course: 68 yom with PMHx of HTN, HLD,h/o opiate dependence on clonidine, diabetes mellitus , disectomy to c4,c5 and c6, left hip replacement in 2005 and full set of teeth extractions, recent URI like illness, treated with Zpack, admitted with progressive shortness of breath, leg swelling and weight gain of 10 lbs. He was noted in acute congestive heart failure and troponin of 0.6 with paradise to 1.52. He was seen by cardiology and placed IV lasix, asa, plavix, metoprolol, statin. he had 2D echo that showed new LV dysfunction with EF 40-455, mild to Moderate mitral regurgitation and small pericardial effusion. His volume status improved during his stay and was transferred to [facility] for cardiac cath. Condition: Improved - Instructions Diet, Activity, Other Instructions: You are being transferred to [facility] for cardiac catheterization and further management. Disposition: TRANSFER ACUTE CARE/OTHER HOSP - Home Medications Comprehensive Discharge Medication List: Ambulatory Orders Amitriptyline HCl [Elavil -] 20 mg PO HS 08/02/18 Aspirin 81 mg PO DAILY 08/02/18 Polyethylene Glycol 3350 [Miralax 119 gm Btl -] 17 gm PO DAILY 08/02/18 Carvedilol [Coreg -] 6.25 mg PO BID tablet 08/05/18 Clopidogrel Bisulfate [Plavix -] 75 mg PO DAILY tablet 08/05/18 Enoxaparin [Lovenox -] 100 mg SQ BID@0600,1800 disp.syrin 08/05/18 Gabapentin [Neurontin -] 200 mg PO TID capsule 08/05/18 Insulin Sliding Scale [Novolog Vial Sliding Scale -] 1 vial SQ BIDAC units Lisinopril [Prinivil] 20 mg PO BID tablet 08/05/18 Metoprolol Succinate [Toprol XL -] 25 mg PO DAILY tab.sr.24h 08/05/18 Mirtazapine [Remeron -] 60 mg PO HS tablet 08/05/18 cloNIDine HCL [Catapres -] 0.1 mg PO BID tablet 08/05/18 This patient is new to me today: No Emergency Visit: Yes ED Registration Date: 08/01/18 Care time: The patient presented to the Emergency Department on the above date and was hospitalized for further evaluation of their emergent condition. Critical Care patient: No - Discharge Referral Referred to [facility] Med P.C.: No
== END 2018-08-04 17:45 | disposition short-term general hospital (02) | DRG 280 ==
LOC: FER 19:51 → FM/S 20:33 → INTOOBSV 20:33 → UNDOADMOB 20:33 → FM/S 21:36 → OBSVTOIN 22:14 → J4W 08-02 15:30
PROVIDERS: ADMIT Internal Medicine; ATTEND Hospitalist
DX: I21.4 Non-ST elevation (NSTEMI) myocardial infarction (principal); I50.21 Acute systolic (congestive) heart failure; J18.9 Pneumonia, unspecified organism; I11.0 Hypertensive heart disease with heart failure; E78.5 Hyperlipidemia, unspecified; E11.9 Type 2 diabetes mellitus without complications; I34.0 Nonrheumatic mitral (valve) insufficiency; G89.29 Other chronic pain
CPT/HCPCS: 36415; 71045-TC-FY; 80048; 82550; 82962; 83036; 83735; 84484; 85025; 85027; 93005; 93010; 93306-TC; 99282-25; G0378; J0735

== ENCOUNTER 2021-09-24 04:17 | Day surgery (SDC) | payer BC, OTHER ==
[2021-09-22 13:10] VITALS: BMI 27.1
[2021-09-24] MEDS ORDERED: BUPIVACAINE HCL/PF 0.25% (2.5MG/ML) 10 ML VIAL ONE (07:14)
[2021-09-24] MEDS ORDERED: LIDOCAINE HCL/PF 1% SDV 5ML VIAL ONE (07:15)
[2021-09-24] MEDS ORDERED: TRIAMCINOLONE ACET 40MG/1ML VIAL ONE (07:15)
[2021-09-24] MEDS ORDERED: BUPIVACAINE HCL/PF 0.5% (5MG/ML) 10 ML VIAL ONE (09:32)
[2021-09-24] MEDS ORDERED: IOHEXOL 180 MG/1 ML ML IJ ONE (10:21)
[2021-09-24] MEDS ORDERED: TRIAMCINOLONE ACET 40MG/1ML VIAL IJ ONE (10:22)
[2021-09-24] MEDS ORDERED: BUPIVACAINE HCL/PF 0.5% (5MG/ML) 10 ML VIAL IJ ONE (10:22)
[2021-09-24] MEDS ORDERED: LIDOCAINE 1% P/F 10 MG/ML VIAL SNB ONE (10:24)
[2021-09-24 11:09] VITALS: TEMP 97.9
[2021-09-24 11:21] VITALS: BP 150/70; PULSE 70
== END 2021-09-24 11:00 | disposition home or self-care (01) ==
LOC: JASU-SURG 04:17
PROVIDERS: ATTEND Pain Medicine Pain Medicine
PROC: 3E0U329 Introduction of Other Anti-infective into Joints, Percutaneous Approach (ICD-10-PCS; 2021-09-24)
PROC: BQ40ZZZ Ultrasonography of Right Hip (ICD-10-PCS; 2021-09-24)
PROC: 3E0U3BZ Introduction of Anesthetic Agent into Joints, Percutaneous Approach (ICD-10-PCS; principal; 2021-09-24 11:00)
DX: M25.551 Pain in right hip (principal); I11.0 Hypertensive heart disease with heart failure; I50.9 Heart failure, unspecified; E11.9 Type 2 diabetes mellitus without complications
CPT/HCPCS: 76000-TC-FY

== ENCOUNTER 2021-11-12 04:09 | Day surgery (SDC) | payer BC, OTHER ==
[2021-11-11 09:40] VITALS: BMI 27.1
[2021-11-12] MEDS ORDERED: BUPIVACAINE HCL/PF 0.5% (5MG/ML) 10 ML VIAL IJ ONE (11:27)
[2021-11-12 11:53] VITALS: TEMP 98.4
[2021-11-12 12:13] VITALS: BP 143/79; PULSE 69
== END 2021-11-12 12:15 | disposition home or self-care (01) ==
LOC: JASU-SURG 04:09
PROVIDERS: ATTEND Pain Medicine Pain Medicine
PROC: BR14YZZ Fluoroscopy of Cervical Facet Joint(s) using Other Contrast (ICD-10-PCS; 2021-11-12)
PROC: 3E0T3BZ Introduction of Anesthetic Agent into Peripheral Nerves and Plexi, Percutaneous Approach (ICD-10-PCS; principal; 2021-11-12 13:00)
DX: M47.812 Spondylosis without myelopathy or radiculopathy, cervical region (principal); I11.0 Hypertensive heart disease with heart failure; I50.9 Heart failure, unspecified; E11.9 Type 2 diabetes mellitus without complications; Z79.84 Long term (current) use of oral hypoglycemic drugs
CPT/HCPCS: 76000-TC-FY

== ENCOUNTER 2023-12-13 04:33 | Day surgery (SDC) | payer BC, OTHER ==
[2023-12-08 11:32] VITALS: BMI 29.1
[2023-12-13] MEDS ORDERED: OFLOXACIN 0.3% OPHTHALMIC SOLUTION 5 ML BOTTLE ONE (06:11)
[2023-12-13] MEDS ORDERED: TROPICAMIDE 1% OPHTH SOLN 15 ML BOTTLE ONE (06:11)
[2023-12-13] MEDS ORDERED: PHENYLEPHRINE 2.5% OPTHALMIC DROP 2ML BOTTLE ONE (06:11)
[2023-12-13] MEDS ORDERED: CYCLOPENTOLATE HCL 1% OPHTH SOLN 2 ML BOTTLE ONE (06:11)
[2023-12-13] MEDS ORDERED: KETOROLAC TROMETHAMINE 0.5% EYE DROP 1 DROP DROPS ONE (06:12)
[2023-12-13 06:22] VITALS: RESP 20
[2023-12-13] MEDS: CYCLOPENTOLATE HCL 1% OPHTH SOLN 2 ML BOTTLE OP SCH (06:44)
[2023-12-13] MEDS: KETOROLAC TROMETHAMINE 0.5% EYE DROP 1 DROP DROPS OP SCH (06:45)
[2023-12-13] MEDS: TROPICAMIDE 1% OPHTH SOLN 15 ML BOTTLE OP SCH (06:46)
[2023-12-13] MEDS: OFLOXACIN 0.3% OPHTHALMIC SOLUTION 5 ML BOTTLE OP SCH (06:47)
[2023-12-13] MEDS: PHENYLEPHRINE 2.5% OPHTH SOLN 15 ML BOTTLE OP SCH (06:48)
[2023-12-13] MEDS ORDERED: SUCCINYLCHOLINE CHLORIDE 200 MG/10 ML SYRINGE ONE (07:22)
[2023-12-13] MEDS ORDERED: SEVOFLURANE 250 ML BTL ONE (07:23)
[2023-12-13] MEDS ORDERED: MIDAZOLAM HCL 2 MG/2 ML SINGLE DOSE VIAL ONE (07:26)
[2023-12-13] MEDS ORDERED: ONDANSETRON 4 MG/2 ML VIAL ONE (07:26)
[2023-12-13] MEDS ORDERED: EPINEPHrine/PF 1 MG/1 ML (1:1,000) AMPULE ONE (07:45)
[2023-12-13] MEDS ORDERED: POVIDONE-IODINE 5% OPHTHALMIC PREP 30 ML SOLUTION ONE (07:46)
[2023-12-13] MEDS ORDERED: BSS (NA/CA/MG/K) BALANCED SALT SOLUTION OPHTH SOLN 15 ML BOTTLE ONE (07:46)
[2023-12-13] MEDS ORDERED: LIDOCAINE HCL/PF 1% SDV 5ML VIAL ONE (07:46)
[2023-12-13] MEDS ORDERED: VANCOMYCIN 500 MG VIAL (RESTRICTED TO ID ONLY) ONE (07:47)
[2023-12-13] MEDS ORDERED: TETRACAINE 0.5% OPHTH SOLN 2 ML BOTTLE ONE (08:06)
[2023-12-13] MEDS ORDERED: CHONDROITIN SU A/HYALUR SOD 1 KIT ONE (08:07)
[2023-12-13] MEDS: TETRACAINE 0.5% OPHTH SOLN 2 ML BOTTLE OS ONE (08:08)
[2023-12-13] MEDS: POVIDONE-IODINE 5% OPHTHALMIC PREP 30 ML SOLUTION OS ONE (08:10)
[2023-12-13] MEDS: BSS (NA/CA/MG/K) BALANCED SALT SOLUTION OPHTH SOLN 15 ML BOTTLE OS ONE (08:12)
[2023-12-13] MEDS: LIDOCAINE HCL 1% PRESERVATIVE FREE - 30ML VIAL IO ONE (08:14)
[2023-12-13] MEDS: CHONDROITIN SU A/HYALUR SOD 1 KIT IO ONE ×2 (08:16)
[2023-12-13] MEDS: EPINEPHrine/PF 1 MG/1 ML (1:1,000) AMPULE IO ONE ×2 (08:23)
[2023-12-13] MEDS: VANCOMYCIN 500 MG VIAL (RESTRICTED TO ID ONLY) IVPB ONE ×2 (08:34)
[2023-12-13 08:53] VITALS: PULSE 71; TEMP 97.7
[2023-12-13] MEDS ORDERED: ACETAMINOPHEN 325 MG TABLET (FP) ONE (09:03)
[2023-12-13] MEDS: ACETAMINOPHEN 325 MG TABLET (FP) PO PRN (09:09)
[2023-12-13 09:31] VITALS: BP 116/67
== END 2023-12-13 09:40 | disposition home or self-care (01) ==
LOC: JASU-SURG 04:33
PROVIDERS: ATTEND Ophthalmology
PROC: 08RK3JZ Replacement of Left Lens with Synthetic Substitute, Percutaneous Approach (ICD-10-PCS; principal; 2023-12-13 08:00)
DX: H26.9 Unspecified cataract (principal)
CPT/HCPCS: 82962; V2632